=== PATIENT | male | born 1985 | race Caucasian/White ===

== ENCOUNTER 2016-11-16 00:59 | Emergency (ER) | payer MEDICARE ==
[~2016-11-16] VITALS: Ht 188 cm; Wt 104.5 kg
[2016-11-16 01:24] LABS: HEMATOCRIT 49.2 % (38.0-50.0); MCHC 34.3 G/DL (30.0-36.0); MCV 87.2 FL (86-99); MEAN PLAT.VOLUME 9.6 uM^3 (9.0-12.4); PLATELET COUNT 326 K/uL (156-360); RBC DIS.WIDTH-CV 13.2 % (11.8-14.6); RBC DIS.WIDTH-SD 42.3 % (39-53); RED BLOOD COUNT 5.64 M/uL (4.00-5.50)
[2016-11-16 01:33] LABS: AMYLASE 93 IU/L (1-118); CHLORIDE 107 mEq/L (99-109); POTASSIUM 4.4 mEq/L (3.7-5.4); SODIUM 143 mEq/L (136-147)
[2016-11-16 01:35] LABS: GLUCOSE 91 mg/dL (70-99)
[2016-11-16 01:36] LABS: ANION GAP 12 MEQ/L (2-14)
[2016-11-16 01:38] LABS: SERUM ETHYL ALCOHOL < 10 mg/dL
[2016-11-16 01:40] LABS: UREA NITROGEN (BUN) 17 mg/dL (9-23)
[2016-11-16 01:42] LABS: LIPASE 37 U/L (1.0-51.0)
[2016-11-16 01:46] LABS: GFR ESTIMATE (CALCULATED) > 59 mL/min/
[2016-11-16] MEDS ORDERED: PERCOCET 5/31 TABLET PO (02:37)
[2016-11-16 02:47] VITALS: BP 124/70
[2016-11-17] MEDS ORDERED: ZOFRAN ODT4 MG PO (14:25)
== END 2016-11-16 02:52 | disposition home or self-care (01) ==
LOC: EME 00:59 → EDBD 00:59 → TRA 00:59
PROVIDERS: Emergency Medicine
DX: S06.0X9A Concussion with loss of consciousness of unspecified duration, initial encounter (principal); S20.229A Contusion of unspecified back wall of thorax, initial encounter; W10.9XXA Fall (on) (from) unspecified stairs and steps, initial encounter; Z98.1 Arthrodesis status; F17.200 Nicotine dependence, unspecified, uncomplicated
CPT/HCPCS: 70450; 71260; 72125; 72129; 72132; 74177; 80048; 81003; 82150; 83690; 85027; 99281; 99285; G0480; J1885; J3010; J7030

== ENCOUNTER 2016-11-17 12:21 | Emergency (ER) | payer MEDICARE ==
[~2016-11-17] VITALS: Ht 188 cm; Wt 105.2 kg
[~2016-11-17 12:21] MED LIST: PERCOCET 5/31 TABLET PO
[2016-11-17] MEDS ORDERED: ZOFRAN ODT4 MG PO (14:25)
[2016-11-17 14:45] VITALS: BP 132/67
== END 2016-11-17 14:45 | disposition home or self-care (01) ==
LOC: RME 12:21 → EME 12:21 → RME 14:45
DX: S06.0X1A Concussion with loss of consciousness of 30 minutes or less, initial encounter (principal); W10.9XXA Fall (on) (from) unspecified stairs and steps, initial encounter; F32.9 Major depressive disorder, single episode, unspecified; F17.200 Nicotine dependence, unspecified, uncomplicated; Z98.1 Arthrodesis status
CPT/HCPCS: 70450; 99281; 99284